=== PATIENT | female | born 1945 | race Caucasian/White ===

== ENCOUNTER 2016-07-22 10:29 | Inpatient (IN) | payer MEDICARE, OTHER ==
[~2016-07-22] VITALS: Ht 165.1 cm; Wt 76.4 kg
[2016-07-22 20:20] LABS: HEMOGLOBIN 9.4 gm/dl (12.3-15.3); RED BLOOD COUNT 3.39 M/UL (4.00-5.10); WHITE BLOOD COUNT 12.4 K/UL (4.5-11.0)
[2016-07-22] MEDS ORDERED: BRILINTA 90 MG90 MG PO (22:42)
[2016-07-22] MEDS ORDERED: CALCITRIOL0.25 MCG PO ×2 (22:43→23:13)
[2016-07-22] MEDS ORDERED: IMDUR ER TAB 3030 MG PO (22:44)
[2016-07-22] MEDS ORDERED: CALCIUM 600 +1 EAC7 PO (22:45)
[2016-07-22] MEDS ORDERED: COREG 3.125M3.125 MG PO (22:45)
[2016-07-22] MEDS ORDERED: VITAMIN B-1000 MCG/M IM (22:49)
[2016-07-22] MEDS ORDERED: CYMBALTA 30 MG30 MG PO (22:50)
[2016-07-22] MEDS ORDERED: GLUCOSAMINE1000 MG PO (22:51)
[2016-07-22] MEDS ORDERED: NORVASC5 MG PO (22:51)
[2016-07-22] MEDS ORDERED: NOVOLOG FL100 UNIT/1 SC (22:51)
[2016-07-22] MEDS ORDERED: MULTIVITAMINS1 EAC1 PO (22:52)
[2016-07-22] MEDS ORDERED: SYNTHROID200 MCG PO (23:00)
[2016-07-22] MEDS ORDERED: PROTONIX 40 MG40 M1 PO (23:00)
[2016-07-22] MEDS ORDERED: VITAMIN D5000 UNIT PO (23:01)
[2016-07-22] MEDS ORDERED: HYDRALAZINE HCL50 MG PO (23:01)
[2016-07-22] MEDS ORDERED: MILLIPRED5 MG PO (23:02)
[2016-07-22] MEDS ORDERED: DULOXETINE HCL60 MG PO (23:14)
[2016-07-23 04:55] LABS: HEMOGLOBIN 8.6 gm/dl (12.3-15.3); RED BLOOD COUNT 3.15 M/UL (4.00-5.10); WHITE BLOOD COUNT 14.3 K/UL (4.5-11.0)
[2016-07-23] MEDS ORDERED: PREDNISONE 10 M10 MG PO (14:34)
[2016-07-24 03:35] LABS: HEMOGLOBIN 8.1 gm/dl (12.3-15.3); RED BLOOD COUNT 2.93 M/UL (4.00-5.10); WHITE BLOOD COUNT 14.9 K/UL (4.5-11.0)
[2016-07-25 04:14] LABS: HEMOGLOBIN 7.7 gm/dl (12.3-15.3); RED BLOOD COUNT 2.8 M/UL (4.00-5.10); WHITE BLOOD COUNT 11.7 K/UL (4.5-11.0)
[2016-07-26 04:47] LABS: HEMOGLOBIN 8.7 gm/dl (12.3-15.3)
[2016-07-27 06:04] LABS: HEMOGLOBIN 8.4 gm/dl (12.3-15.3); RED BLOOD COUNT 3.08 M/UL (4.00-5.10); WHITE BLOOD COUNT 10.6 K/UL (4.5-11.0)
[2016-07-28 05:23] LABS: HEMOGLOBIN 8.8 gm/dl (12.3-15.3); RED BLOOD COUNT 3.19 M/UL (4.00-5.10); WHITE BLOOD COUNT 11.1 K/UL (4.5-11.0)
[2016-07-29] MEDS ORDERED: NEPRO CARB ST1000 ML PO (15:56)
[2016-07-29] MEDS ORDERED: FERROUS SULFAT325 MG PO ×2 (15:57→16:10)
[2016-07-29] MEDS ORDERED: MAGNESIUM OXID400 MG PO (16:02)
[2016-07-29] MEDS ORDERED: VANCOCIN HCL125 MG PO (16:06)
== END 2016-07-29 18:03 | disposition home or self-care (01) | DRG 371 ==
LOC: MED SURG 4 18:30 → CCU 18:30 → MED SURG 4 07-24 20:25
PROVIDERS: Internal Medicine; Internal Medicine Nephrology; Legal Medicine; ADMIT Emergency Medicine
DX: A04.7 Enterocolitis due to Clostridium difficile (principal); E13.10 Other specified diabetes mellitus with ketoacidosis without coma; N17.9 Acute kidney failure, unspecified; E44.0 Moderate protein-calorie malnutrition; I12.9 Hypertensive chronic kidney disease with stage 1 through stage 4 chronic kidney disease, or unspecified chronic kidney disease; N18.3 Chronic kidney disease, stage 3 (moderate); E87.6 Hypokalemia; Z79.4 Long term (current) use of insulin; E55.9 Vitamin D deficiency, unspecified; R53.81 Other malaise; D50.9 Iron deficiency anemia, unspecified; Z79.52 Long term (current) use of systemic steroids; Z79.899 Other long term (current) drug therapy; Z82.49 Family history of ischemic heart disease and other diseases of the circulatory system; Z83.3 Family history of diabetes mellitus; Z88.2 Allergy status to sulfonamides
CPT/HCPCS: 36415; 36600; 71010; 74000; 80048; 80053; 80074; 82009; 82150; 82272; 82330; 82340; 82436; 82570; 82728; 82803; 82962; 83516; 83540; 83605; 83690; 83735; 83970; 84100; 84132; 84133; 84156; 84300; 84439; 84443; 84466; 85014; 85018; 85025; 85027; 85045; 85610; 85730; 86039; 86160; 86162; 86225; 86334; 86850; 86900; 86901; 86920; 87040; 87045; 87046; 87086; 89055; 97116; 97530; 97535; C1751; J0360; J1644; J1756; J3370; J7030; J7040; J7050; P9016